=== PATIENT | female | born 1960 | race Caucasian/White ===

== ENCOUNTER 2016-05-28 07:10 | Day surgery (SDC) | payer OTHER ==
[~2016-05-28] VITALS: Ht 188 cm; Wt 73.0 kg
[2016-05-28] MEDS ORDERED: fentaNYL-PF 50 mCg/mL 2 mL Inj IVPUSH PRN (07:15)
[2016-05-28] MEDS ORDERED: Sodium Chloride LOK Flush 10 mL Syringe IV PRN (07:15)
[2016-05-28 07:30] VITALS: BP 109/75; PULSE 64; RESP 16; O2SAT 95
[2016-05-28] MEDS: 0.9% Sodium Chloride 1,000 ML IV PRN ×2 (08:00→08:25)
[2016-05-28 08:35] VITALS: BP 110/66; PULSE 59; RESP 15; O2SAT 94
[2016-05-28 08:45] VITALS: BP 112/65; PULSE 53; RESP 16; O2SAT 96
--- NOTE | 2016-05-28 08:53 | ENDO ---
[address] [address] ENDOSCOPY PROCEDURE PATIENT: FRANCESCO MOBLEY : 1960 MR#: [id number] ADMIT: 05/28/2016 JOB ID: [id number] DATE OF SERVICE: 05/28/2016 PRIMARY PROVIDER: EDGARDO Glover. PROCEDURE: Colonoscopy. INDICATIONS: A 55-year-old female who reports for colon cancer screening. EQUIPMENT: PCSceneShot-H180AL. SEDATION: 1. Versed 4 mg. 2. Fentanyl 75 mcg. COMPLICATIONS: None identified. BOWEL PREPARATION: Excellent. PROCEDURE INFORMATION: After the risks and benefits were explained, written and verbal informed consent was obtained. The patient was brought into the endoscopy suite and placed into the left lateral decubitus position. Sedation was achieved using the above-stated medications with the addition of oxygen via nasal cannula. A digital rectal examination was accomplished. No significant pathology appreciated. The scope was introduced into the rectum and advanced under direct visualization to the level of the cecum, as identified by the appendiceal orifice and ileocecal valve. The scope was slowly withdrawn to carefully examine the mucosa for any defects or lesions. Retroflexed views were avoided in the rectum. Multiple direct views were made through the dentate line for exclusion of pathology. The colon was decompressed. The scope removed from the patient who tolerated the procedure well. FINDINGS: No significant polyps, mass lesions, or inflammatory features identified throughout. There were some scattered scant diverticula in the left colon. ENDOSCOPIC DIAGNOSES: 1. Mild diverticulosis. 2. Otherwise visually unremarkable colonoscopy to cecum. RECOMMENDATIONS: Repeat colonoscopy in 10 years' time, sooner should symptoms warrant an earlier exam.
[2016-05-28 09:01] VITALS: BP 97/71; PULSE 67; RESP 16; O2SAT 95
== END 2016-05-28 23:59 | disposition home or self-care (01) ==
LOC: END 07:10
PROVIDERS: ATTEND Internal Medicine Gastroenterology
DX: Z12.11 Encounter for screening for malignant neoplasm of colon (principal); K57.30 Diverticulosis of large intestine without perforation or abscess without bleeding; R01.1 Cardiac murmur, unspecified; I86.8 Varicose veins of other specified sites; M17.12 Unilateral primary osteoarthritis, left knee
CPT/HCPCS: 99153; G0121; G0500; J2250; J3010; J7030